=== PATIENT | female | born 1945 | race Caucasian/White ===

== ENCOUNTER 2017-12-13 06:10 | Day surgery (SDC) | payer OTHER ==
[~2017-12-13 06:10] MED LIST: INTESTINEX1 CA1 PO; TRAM1TAB98 PO
== END 2017-12-13 09:10 | disposition home or self-care (01) ==
LOC: AMB-ENDOS 06:10
DX: K57.30 Diverticulosis of large intestine without perforation or abscess without bleeding (principal); K64.8 Other hemorrhoids; Z85.038 Personal history of other malignant neoplasm of large intestine; Z08 Encounter for follow-up examination after completed treatment for malignant neoplasm

== ENCOUNTER 2018-05-03 07:25 | Outpatient (CLI) | payer OTHER | END 2018-05-03 07:36 | disposition home or self-care (01) | LOC: TOM 07:25 | DX: C19 Malignant neoplasm of rectosigmoid junction (principal); R59.0 Localized enlarged lymph nodes; R19.4 Change in bowel habit | CPT/HCPCS: 74177; Q9965 ==

== ENCOUNTER 2018-05-08 13:46 | Outpatient (CLI) | payer OTHER | END 2018-05-08 13:52 | disposition home or self-care (01) | LOC: MAMO-SONO 13:46 | DX: Z12.31 Encounter for screening mammogram for malignant neoplasm of breast (principal); Z87.898 Personal history of other specified conditions; C50.911 Malignant neoplasm of unspecified site of right female breast; C50.912 Malignant neoplasm of unspecified site of left female breast; N63.10 Unspecified lump in the right breast, unspecified quadrant; N63.20 Unspecified lump in the left breast, unspecified quadrant ==

== ENCOUNTER 2018-12-05 05:50 | Day surgery (SDC) | payer OTHER | END 2018-12-05 09:20 | disposition home or self-care (01) | LOC: AMB-ENDOS 05:50 | DX: K57.30 Diverticulosis of large intestine without perforation or abscess without bleeding (principal); K64.8 Other hemorrhoids ==

== ENCOUNTER 2019-11-15 14:19 | Outpatient (CLI) | payer OTHER | END 2019-11-15 14:22 | disposition home or self-care (01) | LOC: SONOGRAMA 14:19 | PROVIDERS: ATTEND Internal Medicine Geriatric Medicine | DX: E03.8 Other specified hypothyroidism (principal); E04.2 Nontoxic multinodular goiter ==

== ENCOUNTER 2020-01-11 10:54 | Outpatient (CLI) | payer OTHER | END 2020-01-11 10:57 | disposition home or self-care (01) | LOC: NUCLEAR 10:54 | PROVIDERS: ATTEND Obstetrics & Gynecology Gynecology | DX: M81.0 Age-related osteoporosis without current pathological fracture (principal) ==

== ENCOUNTER 2021-01-12 10:13 | Outpatient (CLI) | payer OTHER | END 2021-01-12 10:24 | disposition home or self-care (01) | LOC: MAMO-SONO 10:13 | PROVIDERS: ATTEND Obstetrics & Gynecology Gynecology | DX: R92.1 Mammographic calcification found on diagnostic imaging of breast (principal); Z12.31 Encounter for screening mammogram for malignant neoplasm of breast; N64.4 Mastodynia ==

== ENCOUNTER 2022-01-13 09:28 | Outpatient (CLI) | payer OTHER | END 2022-01-13 09:52 | disposition home or self-care (01) | LOC: MAMO-SONO 09:28 | PROVIDERS: ATTEND Obstetrics & Gynecology Gynecology | DX: Z12.31 Encounter for screening mammogram for malignant neoplasm of breast (principal); N64.4 Mastodynia ==

== ENCOUNTER 2023-01-27 09:33 | Outpatient (CLI) | payer OTHER | END 2023-01-27 09:48 | disposition home or self-care (01) | LOC: MAMO-SONO 09:33 | PROVIDERS: ATTEND Obstetrics & Gynecology Gynecology | DX: Z12.31 Encounter for screening mammogram for malignant neoplasm of breast (principal); N64.4 Mastodynia ==

== ENCOUNTER 2023-05-16 07:14 | Day surgery (SDC) | payer OTHER ==
[~2023-05-16 07:14] MED LIST changes: +LEVO-T50 MCG PO; +LIPITOR20 MG PO; +TENORMIN25 MG PO
[2023-05-16] MEDS ORDERED: CEFAZOLIN SODIUM 1,000 MG VIAL ONE (08:26)
[2023-05-16] MEDS ORDERED: BUPIVACAINE HCL/PF 0.5% 30ML ML ONE (08:26)
[2023-05-16] MEDS ORDERED: LIDOCAINE HCL 1%/Epi 20ML VIAL IJ ONE ×2 (08:26→09:45)
[2023-05-16] MEDS ORDERED: CEFAZOLIN SODIUM 1,000 MG VIAL IV ONE (09:45)
[2023-05-16] MEDS ORDERED: BUPIVACAINE HCL 30 ML VIAL IJ ONE (09:45)
[2023-05-16] MEDS ORDERED: TRAM1TAB98 PO (10:08)
== END 2023-05-16 11:50 | disposition home or self-care (01) ==
LOC: CIR.AMB 07:14
PROVIDERS: ATTEND Surgery
DX: C19 Malignant neoplasm of rectosigmoid junction (principal); I10 Essential (primary) hypertension; Z20.822 Contact with and (suspected) exposure to COVID-19; Z88.6 Allergy status to analgesic agent

== ENCOUNTER 2024-02-28 13:18 | Outpatient (CLI) | payer OTHER | END 2024-02-28 13:29 | disposition home or self-care (01) | LOC: MAMO-SONO 13:18 | PROVIDERS: ATTEND Obstetrics & Gynecology Gynecology | DX: N64.4 Mastodynia (principal); Z12.31 Encounter for screening mammogram for malignant neoplasm of breast ==